=== PATIENT | male | born 1985 | race Caucasian/White ===

== ENCOUNTER 2023-10-12 11:29 | Emergency (ER) | payer BC ==
[2023-10-12] MEDS ORDERED: Acetaminophen/Butalbital/Caffeine 325-50-40 MG Tab PO ONE (12:44)
[2023-10-12] MEDS ORDERED: Cyclobenzaprine 10 MG Tab PO ONE (12:48)
== END 2023-10-12 13:28 | disposition home or self-care (01) ==
LOC: MW.ED 11:29
DX: G44.209 Tension-type headache, unspecified, not intractable (principal)
CPT/HCPCS: 99283; A9270